=== PATIENT | female | born 1970 ===

== ENCOUNTER 2018-07-06 09:44 | Day surgery (SDC) | payer BC ==
[~2018-07-06 09:44] MED LIST: Buffered Lidocaine 1% SYRIN* 1 ML/SYRINGE INTRADERM ONE; Lactated Ringers 1000 ML Bag* 1,000 ML IV SCH
[2018-07-06] MEDS ORDERED: ceFAZolin 2 GM PREMIX in ORs 2 GM/50 ML BAG IVPB ONE (10:02)
[2018-07-06] MEDS ORDERED: fentaNYL* 50 MCG/ML 2 ML VIAL (100 MCG VIAL) ONE (10:39)
[2018-07-06] MEDS ORDERED: Midazolam* 1 MG/ML 2 ML VIAL (2 MG) ONE (10:39)
[2018-07-06] MEDS ORDERED: Propofol* 10 MG/ML 20 ML BTL ONE (10:40)
[2018-07-06] MEDS ORDERED: Lidocaine 2% PF * 5 ML VIAL ONE (10:41)
[2018-07-06] MEDS ORDERED: Ketorolac INJ* 30 MG/ML 1 ML VIAL ONE (11:24)
[2018-07-06] MEDS ORDERED: Metoclopramide IV* 5 MG/ML 2 ML VIAL ONE (11:24)
[2018-07-06] MEDS ORDERED: Ondansetron INJ* 2 MG/ML VIAL ONE (11:24)
[2018-07-06] MEDS ORDERED: Bupivacaine 0.25% SDV* 30 ML ONE (11:43)
[2018-07-06] MEDS ORDERED: Acetaminophen TAB* 325 MG PO PRN (12:21)
[2018-07-06] MEDS ORDERED: Naloxone* 0.4 MG/ML 1 ML VIAL IV PRN (12:21)
[2018-07-06] MEDS ORDERED: fentaNYL* 50 MCG/ML 2 ML VIAL (100 MCG VIAL) IV PRN (12:21)
[2018-07-06] MEDS ORDERED: oxyCODONE TAB* 5 MG TAB PO PRN (12:21)
[2018-07-06] MEDS ORDERED: DiMENhydriNATE IV* 50 MG/ML VIAL IV PUSH PRN (12:21)
[2018-07-06] MEDS ORDERED: Acetaminophen TAB* 325 MG ONE (14:00)
[2018-07-06] MEDS ORDERED: oxyCODONE/Acetamin 5/325 MG* TAB ONE (14:00)
[2018-07-06 14:12] VITALS: BP 118/79
--- NOTE | 2018-07-06 22:24 | OP ---
OPERATIVE REPORT: DATE OF OPERATION: 07/06/18 - [place] DATE OF : 74 SURGEON: Con Henry MD PATTERN DRUM MAKER: MARVA Craig An assistant director of nursing was needed for the entirety of the procedure to aid in positioning of the arm and retraction. ANESTHESIOLOGIST: Dr. Medel. ANESTHESIA: General. PRE-OP DIAGNOSES: 1. Left carpal tunnel syndrome. 2. Left median nerve decompression in the proximal forearm as well as lacertus fibrosus. 3. Left cubital tunnel syndrome. POST-OP DIAGNOSES: 1. Left carpal tunnel syndrome. 2. Left median nerve decompression in the proximal forearm as well as lacertus fibrosus. 3. Left cubital tunnel syndrome. OPERATIVE PROCEDURE: 1. Left endoscopic carpal tunnel release. 2. Left median nerve decompression in the forearm with release of the lacertus fibrosus. 3. Left in situ cubital tunnel release. ESTIMATED BLOOD LOSS: 10 mL. COMPLICATIONS: None. FINDINGS: See above and below. DESCRIPTION OF PROCEDURE: Emily was seen in the preoperative holding area. The correct side, site, and procedures were identified. We came back to the operating room. The arm was prepped and draped in the usual fashion and time- out was performed. The arm was exsanguinated with the Esmarch and the tourniquet was inflated to 250 mmHg. I first made a 1 cm transverse incision just ulnar to the palmaris longus tendon. Dissection was carried down and the distal antebrachial fascia was split transversely by spreading with the tenotomy scissors. A 2 prong skin hook was placed. I then used a synovial stripper followed by the dilators to create space in the carpal tunnel. The MicroAir endoscopic carpal tunnel system was then introduced. When I had it in the appropriate position, I pulled the trigger to bring the blade up and then cut the ligament as I gently pulled the blade back releasing the ligament in its entirety on the ulnar aspect from distal to proximal. Once I had completed the release, I placed a Romel retractor and went ahead and confirmed full release proximally and distally. Everything was looking good. I then released the distal antebrachial fascia proximally. We irrigated out the wound and the skin was closed with 4-0 nylon suture. I then made a 3 cm transverse incision in the proximal forearm just distal to the elbow flexion crease over the lacertus fibrosus. Dissection was carried down. The large traversing veins were preserved. I bluntly spread full- thickness flaps off of the fascia and of the lacertus fibrosus. I then spread above and below lacertus and then released it with the tenotomy scissors. The release was completed distally and proximally. Once it was completely released , we irrigated out the wound and the skin was closed with 4-0 nylon suture. Lastly, I placed the arm in the abducted and externally rotated position. I then made curvilinear incision centered over the cubital tunnel. Dissection was carried down. The medial antebrachial cutaneous nerve was identified and protected. I released the fascia just proximal to Graham's ligament and released it all the way proximally. I placed an appendiceal reactor past the arcade of [place]. I then came distally and I released Graham's ligament. The nerve was compressed underneath the Graham's ligament. I then released the superficial FCU fascia. I then split the 2 edges of the FCU and then released the subfascial layer. Once I completed the release from proximal to distal, I went ahead and obtained hemostasis with the Bovie. The wound was irrigated out. The subcutaneous tissue was reapproximated with 3-0 Vicryl. The skin was closed with 3-0 Monocryl and Steri- Strips. 0.25% plain Marcaine was infiltrated all around the operative areas. Wounds were dressed with Xeroform, 4x4's, and ABD at the elbow, sterile Webril and then Leonidas bandages. She was then taken to the recovery room in stable condition. [id number]/[facility] #: [id number] JESSEE
== END 2018-07-06 14:31 | disposition home or self-care (01) ==
LOC: OREAST 09:44
PROVIDERS: ATTEND Orthopaedic Surgery Hand Surgery
DX: G56.02 Carpal tunnel syndrome, left upper limb (principal); G56.22 Lesion of ulnar nerve, left upper limb; G56.12 Other lesions of median nerve, left upper limb; Z72.0 Tobacco use; Z87.442 Personal history of urinary calculi; F41.8 Other specified anxiety disorders; M19.90 Unspecified osteoarthritis, unspecified site
CPT/HCPCS: A9270-GY; J0690; J1885; J2250; J2405; J2704; J2765; J3010; J3490

== ENCOUNTER 2018-07-20 08:20 | Day surgery (SDC) | payer BC ==
[~2018-07-20 08:20] MED LIST changes: +Famotidine IV* 10 MG/ML 2 ML (20 mg) IV ONE; +Famotidine IV* 10 MG/ML 2 ML (20 mg) ONE; +Midazolam* 1 MG/ML 2 ML VIAL (2 MG) ONE; +fentaNYL* 50 MCG/ML 2 ML VIAL (100 MCG VIAL) ONE
[2018-07-20] MEDS ORDERED: Scopolamine 1.5 mg* PATCH ONE (10:07)
[2018-07-20] MEDS ORDERED: Bupivacaine 0.25% SDV PF* 10 ML VIAL INJ ONE (10:10)
[2018-07-20] MEDS ORDERED: Naloxone* 0.4 MG/ML 1 ML VIAL IV PRN (11:30)
[2018-07-20] MEDS ORDERED: Metoclopramide IV* 5 MG/ML 2 ML VIAL IV PRN (11:30)
[2018-07-20] MEDS ORDERED: Ibuprofen TAB* 600 MG PO PRN (11:30)
[2018-07-20] MEDS ORDERED: Acetaminophen TAB* 325 MG PO PRN (11:30)
[2018-07-20 12:50] VITALS: BP 131/79
--- NOTE | 2018-07-20 16:04 | OP ---
OPERATIVE REPORT: DATE OF OPERATION: 07/20/18 - [place] DATE OF : 74 SURGEON: Con Henry MD CERTIFIED COMPOSITES TECHNICIAN: MARVA Craig ANESTHESIOLOGIST: Dr. Crockett. ANESTHESIA: General. PRE-OP DIAGNOSIS: Right carpal tunnel syndrome POST-OP DIAGNOSIS: Right carpal tunnel syndrome. OPERATIVE PROCEDURE: Right endoscopic carpal tunnel release INDICATIONS: Emily is 48. She has carpal tunnel syndrome. We talked about risks and benefits, she wanted to proceed. ESTIMATED BLOOD LOSS: 1 mL. COMPLICATIONS: None. FINDINGS: See above and below. DESCRIPTION OF PROCEDURE: Emily was seen in the preoperative holding area. The correct side, site and procedure were identified. We came back to the operating room. The arm was prepped and draped in the usual fashion. A time- out was performed. The arm was exsanguinated with the Esmarch and the tourniquet inflated to 250 mmHg. I made a 1 cm transverse incision just ulnar to the palmaris longus tendon proximal to the wrist joint. Dissection was carried down, the fascia was split bluntly with the tenotomy scissors, a 2-prong skin hook was placed. The dilators were used. I used a Q-tip to dry out the canal. The MicroAire endoscopic carpal tunnel syndrome was then introduced and under direct visualization, I went ahead and released the entirety of the transverse carpal ligament taking great care to protect the median nerve. Once the release is completed distally and everything was confirmed, I came proximally and I released the distal antebrachial fascia with a tenotomy scissors. At this point , everything was looking very good. We irrigated out the wound. The skin was closed with 4-0 nylon suture. Soft dressing was applied and she was taken to the recovery room in stable condition. [id number]/[facility] #: [id number] [facility] CENTERLewis
== END 2018-07-20 12:41 | disposition home or self-care (01) ==
LOC: OREAST 08:20
PROVIDERS: ATTEND Orthopaedic Surgery Hand Surgery
DX: G56.01 Carpal tunnel syndrome, right upper limb (principal); Z72.0 Tobacco use; J45.909 Unspecified asthma, uncomplicated; K21.9 Gastro-esophageal reflux disease without esophagitis; F41.9 Anxiety disorder, unspecified; F90.9 Attention-deficit hyperactivity disorder, unspecified type
CPT/HCPCS: A9270-GY; J2250; J3010; J3490

== ENCOUNTER 2019-03-29 09:38 | Day surgery (SDC) | payer BC ==
[~2019-03-29 09:38] MED LIST changes: +Dexamethasone IV* 4 MG/ML 1 ML (4 MG) IV SLOW PU ONE; +Dexamethasone IV* 4 MG/ML 1 ML (4 MG) ONE; -Famotidine IV* 10 MG/ML 2 ML (20 mg) IV ONE; -Famotidine IV* 10 MG/ML 2 ML (20 mg) ONE; -Midazolam* 1 MG/ML 2 ML VIAL (2 MG) ONE; +Ondansetron INJ* 2 MG/ML VIAL ONE; +Scopolamine 1.5 mg* PATCH ONE; +ceFAZolin 2 GM PREMIX in ORs 2 GM/50 ML BAG ONE; -fentaNYL* 50 MCG/ML 2 ML VIAL (100 MCG VIAL) ONE
[2019-03-29] MEDS ORDERED: Gentamicin ADULT (*) 40 MG/ML VIAL (2 ML VIAL = 80 MG) ONE (09:50)
[2019-03-29] MEDS ORDERED: ceFAZolin VIAL(*) VIAL ONE (09:50)
[2019-03-29] MEDS ORDERED: Bacitracin INJECTION* 50,000 UNITS ONE (09:51)
[2019-03-29] MEDS ORDERED: Povidone Iodine 5% OPTH* 30 ML BTL ONE (09:52)
[2019-03-29] MEDS ORDERED: Atracurium* 10 MG/ML 10 ML VIAL ONE (10:59)
[2019-03-29] MEDS ORDERED: Midazolam* 1 MG/ML 5 ML VIAL (5 MG) ONE (10:59)
[2019-03-29] MEDS ORDERED: fentaNYL* 50 MCG/ML 5 ML VIAL (250 MCG VIAL) ONE (10:59)
[2019-03-29] MEDS ORDERED: Ondansetron INJ* 2 MG/ML VIAL ONE (11:00)
[2019-03-29] MEDS ORDERED: Lidocaine 2% PF * 5 ML VIAL ONE (11:00)
[2019-03-29] MEDS ORDERED: Propofol* 10 MG/ML 20 ML BTL ONE (11:00)
[2019-03-29] MEDS ORDERED: Naloxone* 0.4 MG/ML 1 ML VIAL IV PRN (12:07)
[2019-03-29] MEDS ORDERED: oxyCODONE/Acetamin 5/325 MG* TAB PO PRN (12:07)
[2019-03-29] MEDS ORDERED: DiMENhydriNATE IV* 50 MG/ML VIAL IV PUSH PRN (12:07)
[2019-03-29] MEDS ORDERED: fentaNYL* 50 MCG/ML 2 ML VIAL (100 MCG VIAL) ONE ×3 (12:15→15:28)
[2019-03-29] MEDS ORDERED: HYDROmorphone INJ1* 1 MG/ML SYRINGE ONE (14:51)
[2019-03-29] MEDS: HYDROmorphone INJ1* 1 MG/ML SYRINGE IV PRN ×5 (14:53→15:20)
[2019-03-29] MEDS: fentaNYL* 50 MCG/ML 2 ML VIAL (100 MCG VIAL) IV PRN ×2 (15:30→15:40)
[2019-03-29 16:47] VITALS: BP 125/90
== END 2019-03-29 16:55 | disposition home or self-care (01) ==
LOC: OR 09:38
PROVIDERS: ATTEND Plastic Surgery
DX: T85.43XA Leakage of breast prosthesis and implant, initial encounter (principal); F17.210 Nicotine dependence, cigarettes, uncomplicated; F32.9 Major depressive disorder, single episode, unspecified
CPT/HCPCS: 88300; A9270-GY; J0690; J1100; J1170; J1580; J2250; J2405; J2704; J3010